=== PATIENT | male | born 1995 | race Hispanic/Latino ===

== ENCOUNTER 2021-04-10 10:59 | Emergency (ER) | payer OTHER ==
[~2021-04-10] VITALS: Ht 188 cm; Wt 71.5 kg
[2021-04-10] MEDS ORDERED: MIRT1TAB16 PO (11:37)
[2021-04-10] MEDS ORDERED: GABA-283 PO (11:37)
[2021-04-10] MEDS ORDERED: CELE10TA PO (11:37)
[2021-04-10] MEDS ORDERED: CELE50CA PO (11:37)
--- NOTE | 2021-04-10 11:50 | REP ---
INDICATION: CHEST PAIN COMPARISON: None. TECHNIQUE: PA and lateral. FINDINGS: The mediastinum and cardiac silhouette are normal. The lung coffman are clear and without acute consolidation, effusion, or pneumothorax. The skeletal structures are intact and normal. IMPRESSION: No acute cardiopulmonary process. <Electronically signed by German Peterson > 04/10/21 [id number]
[2021-04-10 13:11] LABS: BASO # 0.1 10^3/uL (0.0-0.2); EOS # 0.1 10^3/uL (0.0-0.5); EOS % 2.3 % (0.0-3.0); HEMATOCRIT 43.4 % (42.0-52.0); HEMOGLOBIN 14.8 g/dl (13.5-17.5); LYMPH % 38.1 % (24.0-44.0); MEAN CORPUSCULAR HEMOGLOBIN 32.7 pg (27.0-33.0); MEAN CORPUSCULAR HGB CONC 34.1 g/dl (32.0-36.5); MEAN CORPUSCULAR VOLUME 95.8 fl (80.0-96.0); MONO # 0.4 10^3/uL (0.0-0.8); MONO % 7.1 % (2.0-8.0); NEUTROPHILS # 2.7 10^3/uL (1.5-8.5); NEUTROPHILS % 51.1 % (36.0-66.0); PLATELET COUNT, AUTOMATED 272 10^3/uL (150-450); RED BLOOD COUNT 4.53 10^6/uL (4.30-6.10); WHITE BLOOD COUNT 5.2 10^3/uL (4.0-10.0)
[2021-04-10 13:48] LABS: ALBUMIN 4.2 GM/DL (3.2-5.2); ALT/SGPT 24 U/L (12-78); BILIRUBIN,DIRECT 0.2 MG/DL (0.0-0.2); BILIRUBIN,TOTAL 0.7 MG/DL (0.2-1.0); BLOOD UREA NITROGEN 15 MG/DL (7-18); CALCIUM LEVEL 9.3 MG/DL (8.5-10.1); CARBON DIOXIDE LEVEL 28 MEQ/L (21-32); CHLORIDE LEVEL 108 MEQ/L (98-107); CK-MB VALUE MASS < 1.0 NG/ML (<3.6); CPK CREATINE PHOSPHOKINASE 134 U/L (39-308); CREATININE FOR GFR 0.92 MG/DL (0.70-1.30); FREE T4 0.99 NG/DL (0.76-1.46); GLOMERULAR FILTRATION RATE > 60.0 (>60); GLUCOSE, FASTING 85 MG/DL (70-100); LIPASE 81 U/L (73-393); MAGNESIUM LEVEL 2.3 MG/DL (1.8-2.4); MB/CK RELATIVE INDEX 0.75 (< OR =4); POTASSIUM SERUM 4.3 MEQ/L (3.5-5.1); SODIUM LEVEL 140 MEQ/L (136-145); THYROID STIMULATING HORMONE 0.569 uIU/ML (0.358-3.740); TOTAL PROTEIN 7.3 GM/DL (6.4-8.2); TROPONIN I < 0.02 NG/ML (< 0.10)
[2021-04-10 14:40] VITALS: BP 128/80
--- NOTE | 2021-04-11 08:06 | ECGEPIP ---
[facility] - ED Test Date: 2021-04-10 Pat Name: SURINDER BESS Department: Room: - Gender: Male [employer]: JChelsie : 1995 Requested By: ANTOLIN Santamaria Order Number: [id number] Reading MD: Ollie Olguin Measurements Intervals Kell Rate: 62 P: 66 SD: 154 QRS: 83 QRSD: 106 T: 46 QT: 390 QTc: 395 Interpretive Statements Normal sinus rhythm Incomplete right bundle branch block NO PRIORS FOR COMPARISON Electronically Signed on 04-11-2021 8:06:53 EDT by Ollie Olguin
== END 2021-04-10 14:42 | disposition home or self-care (01) ==
LOC: M ED 10:59
DX: R00.2 Palpitations (principal); Z79.899 Other long term (current) drug therapy